=== PATIENT | female | born 1985 | race Caucasian/White ===

== ENCOUNTER 2016-06-21 12:42 | Emergency (ER) | payer SELFPAY ==
[~2016-06-21] VITALS: Ht 144.8 cm; Wt 56.5 kg
[~2016-06-21 12:42] MED LIST: PREN-39 PO
[2016-06-21 12:47] VITALS: Ht 144.8 cm; Wt 56.5 kg
--- NOTE | 2016-06-21 15:47 | ERD ---
ER Documentation Chief Complaint Date/Time DATE: 06/21/16 TIME: 15:44 Chief Complaint CAME IN VIA INTAKE DUE TO LEFT EAR, LEFT JAW, AND LEFT NECK PAIN HPI This a 30-year-old female who presents the emergency department today complaining of some left-sided facial swelling with left ear and left jaw pain. States that she cannot hear out of her left ear. States that last week she had flulike symptoms and took DayQuil. She is not taking antibiotics. States she is losing her voice. States that 3 days ago she also woke up with red in her eyes and discharge. States that last week she had a fever. Denies any currently. Denies any vomiting or diarrhea. ROS All systems reviewed and are negative except as per history of present illness. Medications Home Meds Active Scripts Hydrocodone/Acetaminophen ([place] 5-325 Tablet) 1 Each Tablet, 1 TAB PO Q6H Y for PAIN, #10 TAB Prov:DAIN SESAY PA-C 06/21/16 Polymyxin B Sulfate-TMP* (Polymyxin B-TMP Eye Drops*) 10 Ml Drops, 1 DROP BOTH EYES QID for 7 Days, EA Prov:DAIN SESAY PA-C 06/21/16 Prednisone* (Prednisone*) 20 Mg Tab, 40 MG PO DAILY for 4 Days, TAB Prov:DAIN SESAY PA-C 06/21/16 Ibuprofen* (Motrin*) 600 Mg Tab, 600 MG PO Q6, #30 TAB Prov:DAIN SESAY PA-C 06/21/16 Fluticasone Propionate (Flonase Allergy Relief) 9.9 Ml [place].susp, 2 SPRAY NASAL DAILY, #1 BOTTLE TO EACH NOSTRIL Prov:DAIN SESAY PA-C 06/21/16 Clindamycin Hcl* (Clindamycin Hcl*) 300 Mg Capsule, 300 MG PO TID for 7 Days, CAP Prov:DAIN SESAY PA-C 06/21/16 Reported Medications Vits W-Ca,Fe,Fa(<1MG) ( Vitamins) 1 Tab Tablet, 1 TAB PO DAILY 05/04/13 Allergies Allergies: Coded Allergies: No Known Allergy (Unverified , 03/12/13) PMhx/Soc Medical and Surgical Hx: pt denies Medical Hx, pt denies Surgical Hx Physical Exam Vitals Vital Signs Date Time Temp Pulse Resp B/P Pulse Ox O2 Delivery O2 Flow Rate FiO2 06/21/16 12:47 99.1 91 18 130/83 100 Physical Exam Const: No acute distress Head: Atraumatic Eyes: Normal Conjunctiva ENT: Ears TMs normal. Nontender mastoid. No drainage. Nose no drainage. Throat no erythema no exudate. Left-sided lymph node swelling. No erythema or warmth. Neck: Full range of motion..~ No meningismus. Resp: Clear to auscultation bilaterally Cardio: Regular rate and rhythm, no murmurs Abd: Soft, non tender, non distended. Normal bowel sounds Skin: No petechiae or rashes Neur: Awake and alert Psych: Normal Mood and Affect Results 24 hrs Current Medications Medications (Trade) Dose Ordered Sig/Christin Route PRN Reason Start Time Stop Time Status Last Admin Dose Admin Acetaminophen/ Hydrocodone Bitart ([place] (5/325)) 1 tab ONCE ONCE PO 06/21/16 16:00 06/21/16 16:01 DC 06/21/16 15:49 Prednisone (Prednisone) 60 mg ONCE ONCE PO 06/21/16 17:00 06/21/16 17:01 DC 06/21/16 16:58 DIAGNOSTIC IMAGING REPORT Patient: CANDIDA BRAGA : 1985 Age: 30 Sex: F [id number] DOS: 06/21/16 0000 Ordering MD: DAIN SESAY PA-C Location: E Room/Bed: PROCEDURE: Ultrasound of the soft tissues of the left side of the neck. CLINICAL INDICATION: Palpable lesion in the left side of the neck. TECHNIQUE: High-resolution sonography of the left side of the neck at the site of the palpable lesion was performed in the axial and sagittal planes. COMPARISON: None FINDINGS: At the site of the palpable lesion in the left side of the neck, there is a benign-appearing lymph node measuring 1.2 x 0.6 x 0.7 cm. There is no other cystic or solid mass at this site. The left side of the neck is otherwise normal. IMPRESSION: 1. Benign-appearing lymph node measuring 1.2 x 0.6 x 0.7 cm in the left side of the neck at the site of the palpable lesion. 2. Any further management regarding the palpable lesion should be based on clinical grounds. RPTAT: QQ .Tanner Mccracken MD, MD Date Time Electronically viewed and signed by .Tanner Mccracken MD, on 06/21/2016 16:10 .R/ CC: DAIN SESAY PA-C Procedures/MDM This a 30-year-old female presents to the emergency department today with multiple complaints. Patient's primary complaint was some left-sided facial swelling. Patient was given [place] for pain and also obtain a soft tissue ultrasound Soft tissue ultrasound shows benign-appearing lymph node measuring 1.2 x 0.6 x 0.7 cm and left-sided neck at the site of the palpable lesion. There is no other cystic or solid mass at the site. Left side the neck is otherwise normal. Patient was given prednisone here in the emergency department. I will give her a short course for home. Patient is afebrile and otherwise well-appearing. I do not see evidence of tonsillar exudate or evidence of strep pharyngitis or otitis media on physical exam. Patient was complained that she could not hear out of the left side of her ear which may be related to eustachian tube dysfunction and her nasal congestion. Low suspicion for mastoiditis, otitis externa. I will give the patient a prescription for Flonase. I discussed the US finding with Dr. Thomas and he has recommended the patient be placed on clindamycin. I do have low suspicion that patient has an abscess, cellulitis, deep space tracking infection. Patient also be given a prescription for Polytrim for her eyes to treat possible bacterial conjunctivitis. Patient's symptoms may also be related to viral or allergic conjunctivitis At this time the patient is stable for discharge and outpatient management. Patient should follow up with their PCP in the next 1-2 days. They may return to the emergency department sooner for any persistent or worsening of symptoms. Patient understood and agreed with the plan. Departure Diagnosis: Primary Impression: Multiple complaints Condition: Fair DAIN SESAY PA-C Jun 21, 2016 15:47
[2016-06-21] MEDS ORDERED: HYDROCODONE/APAP (5/325) TAB PO ONE (16:00)
--- NOTE | 2016-06-21 16:11 | RADRPT ---
PROCEDURE: Ultrasound of the soft tissues of the left side of the neck. CLINICAL INDICATION: Palpable lesion in the left side of the neck. TECHNIQUE: High-resolution sonography of the left side of the neck at the site of the palpable les ion was performed in the axial and sagittal planes. COMPARISON: None FINDINGS: At the site of the palpable lesion in the left side of the neck, there is a benign-appearing lymph n ode measuring 1.2 x 0.6 x 0.7 cm. There is no other cystic or solid mass at this site. The left side of the neck is otherwise normal. IMPRESSION: 1. Benign-appearing lymph node measuring 1.2 x 0.6 x 0.7 cm in the left side of the neck at the sit e of the palpable lesion. 2. Any further management regarding the palpable lesion should be based on clinical grounds. RPTAT: QQ .Tanner Mccracken MD, Date Time Electronically viewed and signed by .Tanner Mccracken MD, MD on 06/21/2016 16:10 .R/
[2016-06-21] MEDS ORDERED: CLIN-73 PO (16:58)
[2016-06-21] MEDS ORDERED: PRED20TA PO (16:59)
[2016-06-21] MEDS ORDERED: FLUT9.9S NASAL (16:59)
[2016-06-21] MEDS ORDERED: POLY10DR19 BOTH EYES (16:59)
[2016-06-21] MEDS ORDERED: IBUP-1542 PO (16:59)
[2016-06-21] MEDS ORDERED: predniSONE 20 MG TAB PO ONE (17:00)
[2016-06-21] MEDS ORDERED: HYDR-906 PO (17:00)
[2016-06-21 17:20] VITALS: BP 123/78; PULSE 89; RESP 18; TEMP 98.8
== END 2016-06-21 17:22 | disposition home or self-care (01) ==
LOC: FTE 12:42
DX: R22.0 Localized swelling, mass and lump, head (principal); H92.02 Otalgia, left ear; R68.84 Jaw pain; R50.9 Fever, unspecified
CPT/HCPCS: 76536; 99284; J7512